=== PATIENT | female | born 2000 | race Caucasian/White ===

== ENCOUNTER 2024-11-30 16:04 | Observation (INO) | payer OTHER, SELFPAY ==
[2024-11-30 16:19] VITALS: BP 137/87; PULSE 88
[2024-11-30 16:29] LABS: Basophils Percent Auto 0.1 % (0.2-2.0); Eosinophils Absolute Auto 0.1 10^3/uL (0.0-0.7); Eosinophils Percent Auto 0.8 % (0.9-7.0); Hematocrit 38.7 % (36.0-48.0); Hemoglobin 13.3 g/dL (12.0-16.0); Immature Granulocytes Abs Auto 0.03 10^3/uL (0.00-0.03); Immature Granulocytes Pct Auto 0.3 % (0.0-0.5); Lymphocytes Absolute Auto 1.4 10^3/uL (1.2-3.8); Lymphocytes Percent Auto 15.1 % (20.5-60.0); Mean Corpuscular HGB Conc 34.4 g/dL (29.9-35.2); Mean Corpuscular Volume 90.2 fL (81.0-99.0); Mean Platelet Volume 9.3 fL (9.5-13.5); Monocytes Absolute Auto 0.8 10^3/uL (0.3-0.8); Monocytes Percent Auto 8.9 % (1.7-12.0); Neutrophils Percent Auto 74.8 % (43.0-75.0); Platelet Count 208 10^3/uL (150-450); Red Blood Count 4.29 10^6/uL (4.20-5.40); Red Cell Distribution Width 12.3 % (11.0-15.0); White Blood Count 9.3 10^3/uL (4.0-11.0)
[2024-11-30 16:36] LABS: Creatinine Urine Random 43.07 mg/dL (20.00-300.00); Protein Creatinine Ratio Urine 0.39; Total Protein Urine Random 16.8 mg/dL (<=11.9)
[2024-11-30 16:42] LABS: Alanine Aminotransferase 24 U/L (14-59); Albumin Globulin Ratio 0.8; Albumin Level 2.5 g/dL (3.4-5.0); Alkaline Phosphatase 132 U/L (46-116); Anion Gap 12.4; Aspartate Amino Transferase 22 U/L (15-37); BUN Creatinine Ratio 10.7; Bilirubin Total 0.2 mg/dL (0.2-1.0); Calcium 8.7 mg/dL (8.5-10.1); Carbon Dioxide 28.1 mmol/L (21.0-32.0); Chloride 106 mmol/L (98-107); Estimated GFR (African America >60 (>=60 mL/min/1.73m^2); Estimated GFR (Non-African Ame >60 (>=60 mL/min/1.73m^2); Globulin 3.3 g/dL; Glucose 92 mg/dL (74-106); Lactate Dehydrogenase 162 U/L (81-234); Potassium 3.5 mmol/L (3.5-5.1); Sodium 143 mmol/L (136-145); Total Protein 5.8 g/dL (6.4-8.2); Uric Acid 4.9 mg/dL (2.6-6.0)
[2024-11-30 16:57] VITALS: BP 123/73; PULSE 80
[2024-11-30 17:34] VITALS: BP 133/81; PULSE 98
[2024-11-30] MEDS: BUTALB/ACETAMINOPHEN/CAFFEINE 50-325-40MG TABLET 1 TAB PO (17:48)
--- NOTE | 2024-11-30 17:55 | US_ITS ---
[place] [address] Patient Name: BERNADETTE ASH MRN: [id number] date: 2000 Sex: F Assigned Patient Location: [facility] Current Patient Location: Accession/Order Number: [id number] Exam Date: 11/30/2024 19:18 Report Date: 11/30/2024 19:18 At the request of: SHERLY SOARES APRN, CNM Procedure: US OB BPP w non-stress Ultrasound biophysical profile HISTORY: High blood pressure Adequate breathing movement, gross body movement, tone and amniotic fluid volume for total score of 8 out of 8. The amniotic fluid index is 11.5cm within normal limits. The heart rate 157 bpm. US/US OB BPP w non-stress IMPRESSION: Adequate ultrasound biophysical profile Impression dictated by: Simba Arshad M.D. 11/30/2024 7:18 PM [facility] Electron[facility]ated by: [id number] Y Date: 11/30/2024 19:18
[2024-11-30 17:58] VITALS: BP 119/55; PULSE 82
[2024-11-30 18:27] VITALS: BP 127/74; PULSE 81
[2024-11-30 18:57] VITALS: BP 123/69; PULSE 73
== END 2024-11-30 19:15 | disposition home or self-care (01) ==
PROVIDERS: Admitting Provider Midwife; PCP Family Medicine; Visit Provider Midwife
DX: O26.893 Other specified pregnancy related conditions, third trimester (principal); R51.9 Headache, unspecified; R03.0 Elevated blood-pressure reading, without diagnosis of hypertension; Z3A.34 34 weeks gestation of pregnancy
CPT/HCPCS: 36415; 59025; 76818; 80053; 82570; 83615; 84156; 84550; 85025; G0378; G0379

== ENCOUNTER 2024-12-28 11:20 | Inpatient (IN) | payer OTHER, SELFPAY ==
--- OUTSIDE RECORDS SUMMARY | 2024-12-20 14:30 | XMS_ITS | Encounter Summary ---
Author Organization [facility] Address [address] [place] [address] Care Team Providers Care Ammonia Box Tender Name Role Phone Armin Richards MD Primary Care Provider Encounter Details Date Type Department Care Team (Latest Contact Info) Description 12/20/2024 2:30 PM EDT Routine [facility] [address] [place] [address] Estela Sanders, CNM [address] [place], [place] [phone] Encounter for care of first , third trimester ([facility]) (Primary Dx); screening for streptococcus B ([facility]) Social History Tobacco Use Types Packs/Day Years Used Date Smoking Tobacco: Never Smokeless Tobacco: Never Alcohol Use Standard Drinks/Week Comments Not Currently 1 (1 standard drink = 0.6 oz pur e alcohol) Social Connection and Isolat ion Panel [NHANES] Answer Date Recorded In a typical week, how many times do you talk on the phone with family, friends, or neighbors? More than three times a week 10/04/2023 How often do you get togethe r with friends or relatives? More than three times a week 10/04/2023 How often do you attend [facility] or pentecostalism services? Never 10/04/2023 Do you belong to any clubs o r organizations such as yazidi groups, unions, fraternal or athletic groups, or school groups? No 10/04/2023 How often do you attend meet ings of the clubs or organizations you belong to? Never 10/04/2023 Are you , , di vorced, , never , or living with a partner? Patient declined 10/04/2023 AUDIT-C Answer Date Recorded Q1: How often do you have a drink containing alc ohol? 2-4 times a month 10/04/2023 Q2: How many drinks containi ng alcohol do you have on a typical day when you are drinking? 1 or 2 10/04/2023 Q3: How often do you have si x or more drinks on one occasion? Less than monthly 10/04/2023 Overall Financial Resource Strain (CARDIA) Answe r Date Recorded How hard is it for you to pa y for the very basics like food, housing, medical care, and heating? Not hard at all 10/04/2023 [facility] of Occupat ional Health - Occupational Stress Questionnaire Answer Date Recorded Do you feel stress - tense, restless, nervous, or anxious, or unable to sleep at night because your mind is troubled all the time - these days? Rather much 10/04/2023 Exercise Vital Sign Answer Date Recorde d On average, how many days pe r week do you engage in moderate to strenuous exercise (like a brisk walk)? 5 days 10/04/2023 On average, how many minutes do you engage in exercise at this level? 60 min 10/04/2023 Hunger Vital Sign Answer Date Recorded Within the past 12 months, y ou worried that your food would run out before you got the money to buy more. Never true 10/04/19 24 Within the past 12 months, t he food you bought just didn't last and you didn't have money to get more. Never true 10/04/2023 PRAPARE - Transportation Answer Date Re corded In the past 12 months, has l ack of transportation kept you from medical appointments or from getting medications? No 11/2023 In the past 12 months, has l ack of transportation kept you from meetings, work, or from getting things needed for daily living? No 10/04/2023 Housing Stability Vital Sign Answer Evaristo e Recorded In the last 12 months, was t here a time when you were not able to pay the mortgage or rent on time? No 10/04/2023 In the last 12 months, how many places have you lived? 1 10/04/2023 In the last 12 months, was t here a time when you did not have a steady place to sleep or slept in a senior living (including now)? No 10/04/2023 Estimated Date of Delivery Comme nts Yes 01/09/2025 Based on last me nstrual period of 04/04/2024 (Exact Date) Sex and Gender Information Value Date Recorded Sex Assigned at Female 10/04/2023 8:44 PM EDT Legal Sex Female 7:10 PM EDT Gender Identity Female 09/11/2022 7:10 PM EDT Sexual Orientation Not on file documented as of this encounter Last Filed Vital Signs Vital Sign Reading Time Taken Comments Blood Pressure 118/80 12/20/2024 2:36 PM EDT Pulse - - Temperature - - Respiratory Rate - - Oxygen Saturation - - Inhaled Oxygen Concentration - - Weight 85.7 kg (189 lb) 12/20/2024 2:36 PM EDT Height - - Body Mass Index 29.6 01/19/2024 4:06 PM EDT documented in this encounter Progress Notes * Estela Sanders CNM - 12/20/2024 2:30 PM EDT Subjective No chief complaint on file. Martha Spring is a 24 y.o. at 37w1d with a working estimated date of delivery of 01/09/2025,by Last Menstrual Period who presents for a routine visit. She denies vaginal bleeding, leakage of fluid, decreased movements, or contractions. OB History Para Term AB Living 1 SAB IAB Ectopic Multiple Live Births # Outcome Date GA Lbr Geovanni/2nd Weight Sex Type Anes PTL Lv 1 Current Her is complicated by: an episode of high blood pressure this and sent to hospital for pre-e work up and all labs negative Hypertension Objective Physical Exam Weight: 189 lb Expected Total Weight Gain: 25 lb-35 lb Pregravid BMI: 23.80 BP: 118/80 Urine protein-negative Urine glucose-negative Assessment/Plan Diagnoses and all orders for this visit: Encounter for care of first , third trimester ([facility]) Continue vitamin. Labs reviewed. GBS taken today appt was rescheduled from last week due to provider deliveries Expected mode of delivery vaginal Follow up in 1 week for a routine visit. documented in this encounter Miscellaneous Notes * Addendum Note - Armin Lobo MA - 12/20/2024 2:30 PM EDTAddended by: ARMIN LOBO on: 12/21/2024 09:09 AM Modules accepted: Orders documented in this encounter Plan of Treatment Not on file documented as of this encounter Procedures Procedure Name Priority Date/Time Associated Diagnosis Comments STREPTOCCOUS, GROUP B CULTURE Routine 12/21/2024 9:18 AM EDT screening for streptococcus B ([facility]) documented in this encounter Results * (ABNORMAL) STREPTOCCOUS, GROUP B CULTURE (12/21/2024 9:18 AM EDT) MICRO NUMBER [id number] [facility] SPECIMEN QUALITY Adequate [facility] SOURCE VAGINAL/ANOR ECTAL [facility] STATUS FINAL [facility] ISOLATE 1 SEE NOTE(A) [facility] Comment: Group B Streptococcus isolated Beta-hemolytic streptococci are predictably susceptible to Penicillin and other beta-lactams. Susceptibility testing not routinely performed. Please contact the laboratory within 3 days if susceptibility testing is desired. COMMENT SEE NOTE [facility] Comment: Note per CDC guidelines optimal recovery is achieved by swabbing both the lower vagina and rectum (through the anal sphincter). 12/21/2024 9:18 AM EDT 12/21/2024 9:18 AM EDT Narrative Resulting Agency Comment Performing Organization Information Site ID: QPT Name: [facility] Address: [address] [place] [address], [address] [place] [phone] Director: Mark Rocha MD us Estela Sanders CNM LAB BODY FLUIDS AND STOOLS O RDERABLES Final Result [facility] documented in this encounter Visit Diagnoses Diagnosis Encounter for care of first , third trimester ([facility] Primary screening for streptococcus B ([facility]) screening for Streptococcus B documented in this encounter Care Teams Ammonia Box Tender Relationship Specialty Start Date End Date Armin Richards MD [address] [place] [address] PCP - General Family Medicine 11/05/22 documented as of this encounter
--- OUTSIDE RECORDS SUMMARY | 2024-12-20 14:30 | XMS_ITS | Encounter Summary ---
Author Organization [facility] Address [address] [place] [address] Care Team Providers Care Cardiopulmonary Technician And Eeg Tech Name Role Phone Armin Richards MD Primary Care Provider [phone] Encounter Details Date Type Department Care Team (Latest Contact Info) Description 12/20/2024 2:30 PM EDT Routine [facility] [address] [place] [address] Estela Sanders, CNM [address] [place], [place] [phone] Encounter for care of first , third trimester ([facility]) (Primary Dx); screening for streptococcus B ([facility]) Social History Tobacco Use Types Packs/Day Years [...] week 10/04/2023 How often do you attend [facility] or sabianism services? Never 10/04/2023 Do you belong to any clubs o r organizations such as voodoo groups, unions, fraternal or athletic groups, or [...] and heating? Not hard at all 10/04/2023 [facility] of Occupat ional Health - Occupational Stress [...] place to sleep or slept in a care home (including now)? No 10/04/2023 Estimated Date of [...] for care of first , third trimester ([facility]) Continue vitamin. Labs reviewed. GBS taken today [...] 9:18 AM EDT screening for streptococcus B ([facility]) documented in this encounter Results * (ABNORMAL) STREPTOCCOUS, GROUP B CULTURE (12/21/2024 9:18 AM EDT) MICRO NUMBER [id number] [facility] SPECIMEN QUALITY Adequate [facility] SOURCE VAGINAL/ANOR [...] Performing Organization Information Site ID: QPT Name: [facility] Address: [address] [place] [address], [address] [place] [phone] Director: Mark Rocha MD us Estela Sanders CNM LAB BODY FLUIDS AND STOOLS O RDERABLES Final Result [facility] documented in this encounter Visit Diagnoses Diagnosis Encounter for care of first , third trimester ([facility] Primary screening for streptococcus B ([facility]) screening for Streptococcus B documented in this encounter Care Teams Cardiopulmonary Technician And Eeg Tech Relationship Specialty Start Date End Date Armin Richards MD [address] [place] [address] PCP - General Family Medicine 11/05/22 documented as of this encounter
[2024-12-28] VITALS (14 sets, daily range): BP systolic 103–136; BP diastolic 59–84; PULSE 78–126
--- OUTSIDE RECORDS SUMMARY | 2024-12-28 10:15 | XMS_ITS | Encounter Summary ---
Author Organization [facility] Address [address] [place] [address] Care Team Providers Care Boat Hoist Operator Helper Name Role Phone Brooke Richards MD Primary Care Provider [phone] Encounter Details Date Type Department Care Team (Late st Contact Info) Description 12/28/2024 10:15 AM EDT Routine [facility] [address] [place] [address] Estela Sanders, CNM [address] [place], [place] [phone] Arrived Social History Tobacco Use Types Packs/Day Years [...] week 10/04/2023 How often do you attend chur ch or caodaism services? Never 10/04/2023 Do you belong to any clubs o r organizations such as yazidism groups, unions, fraternal or athletic groups, or [...] and heating? Not hard at all 10/04/2023 [facility] [place] of Occupat ional Health - Occupational Stress [...] place to sleep or slept in a half-way (including now)? No 10/04/2023 Estimated Date of [...] Sign Reading Time Taken Comments Blood Pressure 150/100 12/28/2024 10:13 AM EDT Pulse - - Temperature - - Respiratory Rate - - Oxygen Saturation - - Inhaled Oxygen Concentration - - Weight 85.3 kg (188 lb) 12/28/2024 10:13 AM EDT Height - - Body Mass Index 29.44 01/19/2024 4:06 PM EDT documented in this encounter Plan of Treatment Not on file documented as of this encounter Visit Diagnoses Not on filedocumented in this encounter Care Teams Boat Hoist Operator Helper Relationship Specialty Start Date End Date Brooke Richards MD [address] [place] [address] PCP - General Family Medicine 11/05/22 documented as of this encounter
--- OUTSIDE RECORDS SUMMARY | 2024-12-28 10:15 | XMS_ITS | Encounter Summary ---
Author Organization [facility] Address [address] [place] [address] Care Team Providers Care General I Farmworker Name Role Phone Brooke Richards MD Primary Care Provider [phone] Encounter Details Date Type Department Care Team (Late st Contact Info) Description 12/28/2024 10:15 AM EDT Routine [facility] [address] [place] [address] Estela Sanders, CNM [address] [place], [place] [phone] Arrived Social History Tobacco Use Types Packs/Day [...] any clubs o r organizations such as uatsdin groups, unions, fraternal or athletic groups, or [...] and heating? Not hard at all 10/04/2023 [facility] of Occupat ional Health - Occupational Stress [...] place to sleep or slept in a assisted (including now)? No 10/04/2023 Estimated Date of [...] on filedocumented in this encounter Care Teams General I Farmworker Relationship Specialty Start Date End Date Brooke Richards MD [address] [place] [address] PCP - General Family Medicine 11/05/22 documented as of this encounter
--- OUTSIDE RECORDS SUMMARY | 2024-12-28 11:03 | XMS_ITS | Encounter Summary ---
Author Organization [facility] Address [id number] [address] [place] [address] Care Team Providers Care Computer Engineering Technologist Name Role Phone Unavailable Primary Care Provider Unavailabl e Encounter Details Date Type Department Care Team (Late st Contact Info) Description 09/28/2024 Orders Only [facility] [address] [place] [address] Beverly Mena, RN Social History Tobacco Use Types Packs/Day Years Used Date Smoking Tobacco: Never Smokeless Tobacco: Never Alcohol Use Standard Drinks/Week Comments Not Currently 0 (1 standard drink = 0.6 oz pur e alcohol) Overall Financial Resource Strain (CARDIA) Answe r Date Recorded How hard is it for you to pa y for the very basics like food, housing, medical care, and heating? Not hard at all 09/27/2024 PRAPARE - Transportation Answer Date Re corded In the past 12 months, has l ack of transportation kept you from medical appointments or from getting medications? No 08/30 In the past 12 months, has l ack of transportation kept you from meetings, work, or from getting things needed for daily living? No 09/27/2024 Housing Instability Answer Date Recorde d Are you worried or concerned that in the next two months you may not have stable housing that you own, rent or stay in as a part of a household? No 09/27/2024 Childcare Answer Date Recorded Childcare Unknown 12/09/2018 Employment Answer Date Recorded Employment Unknown 12/09/2018 Hunger Screening Answer Date Recorded Within the past 12 months we worried whether our food would run out before we got money to buy more. Never True 09/27/2024 Within the past 12 months th e food we bought just didn't last and we didn't have money to get more. Never True 09/27/2024 Estimated Date of Delivery Comme nts Yes 01/09/2025 Based on Other B asis, Per pt states based on LMP and u/s around 8 weeks Sex and Gender Information Value Date Recorded Sex Assigned at Not on file Legal Sex Female 12:06 PM EDT Gender Identity Not on file Sexual Orientation Not on file documented as of this encounter Plan of Treatment Not on file documented as of this encounter Visit Diagnoses Not on filedocumented in this encounter
--- OUTSIDE RECORDS SUMMARY | 2024-12-28 11:03 | XMS_ITS | Encounter Summary ---
Author Organization [facility] Address [address] [place] [address] Care Team Providers Care Distribution Center Associate Name Role Phone Brooke Richards MD Primary Care Provider [phone] Encounter Details Date Type Department Care Team (Late st Contact Info) Description 11/10/2024 Results Follow-Up [facility] [address] [place] [address] Estela Sanders, CNM [address] [place], [place] [phone] Social History Tobacco Use Types Packs/Day Years [...] often do you attend chur ch or yarsanism services? Never 10/04/2023 Do you belong to any clubs o r organizations such as roman catholic groups, unions, fraternal or athletic groups, or [...] and heating? Not hard at all 10/04/2023 [facility] of Occupat ional Health - Occupational Stress [...] place to sleep or slept in a residential (including now)? No 10/04/2023 Estimated Date of [...] on filedocumented in this encounter Care Teams Distribution Center Associate Relationship Specialty Start Date End Date Brooke Richards MD [address] [place] [address] PCP - General Family Medicine 11/05/22 documented as of this encounter
--- OUTSIDE RECORDS SUMMARY | 2024-12-28 11:03 | XMS_ITS | Encounter Summary ---
Author Organization [facility] Address [address] [place] [address] Care Team Providers Care Track Layer Head Name Role Phone Brooke Richards MD Primary Care Provider [phone] Encounter Details Date Type Department Care Team (Late st Contact Info) Description 12/20/2024 Bamboo flowsheet [facility] [address] [place] [address] Estela Sanders, CNM [address] [place], [place] [phone] Social History Tobacco Use Types Packs/Day Years [...] often do you attend chur ch or religion services? Never 10/04/2023 Do you belong to any clubs o r organizations such as adventism groups, unions, fraternal or athletic groups, or [...] and heating? Not hard at all 10/04/2023 [facility] [place] of Occupat ional Health - Occupational Stress [...] on filedocumented in this encounter Care Teams Track Layer Head Relationship Specialty Start Date End Date Brooke Richards MD [address] [place] [address] PCP - General Family Medicine 11/05/22 documented as of this encounter
--- OUTSIDE RECORDS SUMMARY | 2024-12-28 11:03 | XMS_ITS | Clinical Summary ---
Author Organization [facility] [email or web address] [facility] Address [id number] [address] [place] [address] Care Team Providers Care Cadd Instructor Name Role Phone Unavailable Primary Care Provider Unavailabl e Allergies No known active allergies Medications no115/iron/folic acid ( 19 ORAL) Take 1 tablet by mouth in the morning. Active Encounters Date Type Department Care Team Description 09/28/2024 Orders Only [facility] [address] [place] [address] Beverly Mena RN 09/27/2024 8:30 PM EDT - 09/28/2024 12:42 AM EDT Hospital Encounter [facility] [address] [place] [address] Giovanna Steve, WATER CONSERVATIONIST-CNM Discharge Disposition: Home from Last 3 Months Social History Tobacco Use Types Packs/Day Years Used Date Smoking Tobacco: Never Smokeless Tobacco: Never Tobacco Cessation:Counseling Given: Not Answered Alcohol Use Standard Drinks/Week Comments Not Currently [...] on file Sexual Orientation Not on file Last Filed Vital Signs Vital Sign Reading Time Taken Comments Blood Pressure 108/65 09/28/2024 12:00 AM EDT Pulse 80 09/28/2024 12:00 AM EDT Temperature 37.4 C (99.4 F) 09/27/2024 8:47 PM EDT Respiratory Rate 16 09/28/2024 12:00 AM EDT Oxygen Saturation 100% 09/27/2024 8:47 PM EDT Inhaled Oxygen Concentration - - Weight 72.6 kg (160 lb) 09/27/2024 8:59 PM EDT Height 170.2 cm (5' 7 ) 09/27/2024 8:59 PM EDT Body Mass Index 25.06 09/27/2024 8:59 PM EDT Plan of Treatment Not on file Medical Devices Not on file Insurance [employer] Advance Directives * Full Code (Latest Code Status on File) Date Activated Date Inactivated Comments 09/28/2024 12:38 AM 09/28/2024 2:49 AM
--- OUTSIDE RECORDS SUMMARY | 2024-12-28 11:03 | XMS_ITS | Encounter Summary ---
Author Organization [facility] Address [address] [place] [address] Care Team Providers Care Dispatcher Service Or Work Name Role Phone Brooke Richards MD Primary Care Provider [phone] Encounter Details Date Type Department Care Team (Latest Contact Info) Description 12/15/2024 Travel Social History Tobacco Use Types Packs/Day Years [...] often do you attend chur ch or orthodox services? Never 10/04/2023 Do you belong to any clubs o r organizations such as holiness groups, unions, fraternal or athletic groups, or [...] and heating? Not hard at all 10/04/2023 [facility] of Occupat ional Health - Occupational [...] on filedocumented in this encounter Care Teams Dispatcher Service Or Work Relationship Specialty Start Date End Date Brooke Richards MD [address] [place] [address] PCP - General Family Medicine 11/05/22 documented as of this encounter
--- OUTSIDE RECORDS SUMMARY | 2024-12-28 11:03 | XMS_ITS | Encounter Summary ---
Author Organization [facility] Address [address] [place] [address] Care Team Providers Care Product Director Name Role Phone Brooke Richards MD Primary Care Provider [phone] Encounter Details Date Type Department Care Team (Late st Contact Info) Description 12/01/2024 Results Follow-Up [facility] [address] [place] [address] Estela Sanders, CNM [address] [place], [place] [phone] Social History Tobacco Use Types Packs/Day Years [...] often do you attend chur ch or holiness services? Never 10/04/2023 Do you belong to any clubs o r organizations such as rastafarian groups, unions, fraternal or athletic groups, or [...] and heating? Not hard at all 10/04/2023 [facility] of Occupat ional Health - Occupational Stress [...] place to sleep or slept in a long term (including now)? No 10/04/2023 Estimated Date of [...] on filedocumented in this encounter Care Teams Product Director Relationship Specialty Start Date End Date Brooke Richards MD [address] [place] [address] PCP - General Family Medicine 11/05/22 documented as of this encounter
--- OUTSIDE RECORDS SUMMARY | 2024-12-28 11:03 | XMS_ITS | Encounter Summary ---
Author Organization [facility] Address [address] [place] [address] Care Team Providers Care Television Agent Name Role Phone Brooke Richards MD Primary Care Provider [phone] Encounter Details Date Type Department Care Team (Late st Contact Info) Description 11/10/2024 Results Follow-Up [facility] [address] [place] [address] Estela Sanders, CNM [address] [place], [place] [phone] Social History Tobacco Use Types Packs/Day Years [...] often do you attend chur ch or methodist services? Never 10/04/2023 Do you belong to any clubs o r organizations such as evangelical groups, unions, fraternal or athletic groups, or [...] and heating? Not hard at all 10/04/2023 [facility] [place] of Occupat ional Health - Occupational Stress [...] place to sleep or slept in a retirement (including now)? No 10/04/2023 Estimated Date of [...] on filedocumented in this encounter Care Teams Television Agent Relationship Specialty Start Date End Date Brooke Richards MD [address] [place] [address] PCP - General Family Medicine 11/05/22 documented as of this encounter
--- OUTSIDE RECORDS SUMMARY | 2024-12-28 11:03 | XMS_ITS | Encounter Summary ---
Author Organization [facility] Address [address] [place] [address] Care Team Providers Care Sand Mixer Operator Name Role Phone Brooke Richards MD Primary Care Provider [phone] Encounter Details Date Type Department Care Team (Latest Contact Info) Description 12/14/2024 Travel Social History Tobacco Use Types Packs/Day [...] often do you attend chur ch or voodoo services? Never 10/04/2023 Do you belong to [...] and heating? Not hard at all 10/04/2023 [facility] of Occupat ional Health - [...] place to sleep or slept in a fpc (including now)? No 10/04/2023 Estimated Date of [...] on filedocumented in this encounter Care Teams Sand Mixer Operator Relationship Specialty Start Date End Date Brooke Richards MD [address] [place] [address] PCP - General Family Medicine 11/05/22 documented as of this encounter
--- OUTSIDE RECORDS SUMMARY | 2024-12-28 11:03 | XMS_ITS | Encounter Summary ---
Author Organization [facility] Address [address] [place] [address] Care Team Providers Care Fight Manager Name Role Phone Brooke Richards MD Primary Care Provider [phone] Encounter Details Date Type Department Care Team (Late st Contact Info) Description 11/03/2024 Results Follow-Up [facility] [address] [place] [address] Estela Sanders, CNM [address] [place], [place] [id number] Social History Tobacco Use Types Packs/Day Years [...] and heating? Not hard at all 10/04/2023 [facility] [place] of Occupat ional Health - Occupational Stress [...] place to sleep or slept in a usp (including now)? No 10/04/2023 Estimated Date of [...] on filedocumented in this encounter Care Teams Fight Manager Relationship Specialty Start Date End Date Brooke Richards MD [address] [place] [address] PCP - General Family Medicine 11/05/22 documented as of this encounter
--- OUTSIDE RECORDS SUMMARY | 2024-12-28 11:04 | XMS_ITS | Encounter Summary ---
Author Organization [facility] Address [address] [place] [address] Care Team Providers Care Rn Military Name Role Phone Brooke Richards MD Primary Care Provider [phone] Encounter Details Date Type Department Care Team (Latest Contact Info) Description 12/21/2024 Travel Social History Tobacco Use Types Packs/Day [...] often do you attend chur ch or uatsdin services? Never 10/04/2023 Do you belong to [...] and heating? Not hard at all 10/04/2023 [facility]at ional [facility] - [...] place to sleep or slept in a snf (including now)? No 10/04/2023 Estimated Date of [...] on filedocumented in this encounter Care Teams Rn Military Relationship Specialty Start Date End Date Brooke Richards MD [address] [place] [address] PCP - General Family Medicine 11/05/22 documented as of this encounter
--- OUTSIDE RECORDS SUMMARY | 2024-12-28 11:04 | XMS_ITS | Encounter Summary ---
Author Organization [facility] Address [address] [place] [address] Care Team Providers Care Juvenile Corrections Officer Name Role Phone Brooke Richards MD Primary Care Provider [phone] Encounter Details Date Type Department Care Team (Late st Contact Info) Description 12/28/2024 Bamboo flowsheet [facility] [address] [place] [address] Estela Sanders, CNM [address] [place], [place] [id number] Social History Tobacco Use Types Packs/Day Years [...] any clubs o r organizations such as hoahaoism groups, unions, fraternal or athletic groups, or [...] heating? Not hard at all 10/04/2023 [facility] [place] of Occupat ional Health - Occupational Stress [...] place to sleep or slept in a intermediate (including now)? No 10/04/2023 Estimated Date of [...] on filedocumented in this encounter Care Teams Juvenile Corrections Officer Relationship Specialty Start Date End Date Brooke Richards MD [address] [place] [address] PCP - General Family Medicine 11/05/22 documented as of this encounter
--- OUTSIDE RECORDS SUMMARY | 2024-12-28 11:04 | XMS_ITS | Clinical Summary ---
Author Organization [facility] Address [address] [place] [address] Care Team Providers Care Mandrel Maker Name Role Phone Brooke Quigley MD Primary Care Provider [phone] Allergies No known active allergies Medications Psmxgffu-Sky-Ik -FA ( 1 + IRON PO) Take by mouth Activ e Blood Pressure Monitoring (Blood Pressure Cuff) miscIndications :Elevated blood pressure affecting in third trimester, antepartum ([facility]) 1 Units in the morning and 1 Units in the evening and 1 Units before bedtime. Please fill whatever insurance will cover. Check BP 3x a day. 1 each Active Active Problems Problem Noted Date Diagnosed Date Iron deficiency anemia secon farheen to inadequate dietary iron intake 10/09/2023 Estimated Date of Delivery Comme nts Yes 01/09/2025 Based on last me nstrual period of 04/04/2024 (Exact Date) Encounters Date Type Department Care Team Description 12/28/2024 10:15 AM EDT Routine [facility] [address] [place] [address] Sherly Sanders CNM Arrived 12/28/2024 Bamboo flowsheet [facility] [address] [place] [address] Sherly Sanders CNM 12/21/2024 Travel 12/20/2024 2:30 PM EDT Routine [facility] [address] [place] [phone] Sherly Sanders, ADRIANA Encounter for care of first , third trimester ([facility]) (Primary Dx); screening for streptococcus B ([facility]) 12/20/2024 Bamboo flowsheet [facility] [place] [address] Sherly Sanders, ADRIANA 12/15/2024 Travel 12/14/2024 Travel 12/08/2024 11:00 AM EDT Routine [facility] [address] [place] [phone] Sherly Sanders, ADRIANA Encounter for care of first , third trimester ([facility]) (Primary Dx) 12/08/2024 Bamboo flowsheet [facility] [address] [place] [address] Sherly Sanders, ADRIANA 12/02/2024 3:45 PM EDT Routine [facility] [address] [place] [phone] Sherly Sanders, ADRIANA Encounter for care of first , third trimester ([facility]) (Primary Dx); Elevated blood pressure affecting in third trimester, antepartum ([facility]) 12/02/2024 Bamboo flowsheet [facility] [address] [place] [address] Sherly Sanders, ADRIANA 12/01/2024 Travel 12/01/2024 Orders Only [facility] [place] [phone] Sherly Sanders, CNM Elevated blood pressure affecting in third trimester, antepartum ([facility]) 12/01/2024 Results Follow-Up [facility] [address] [place] [phone] Sherly Sanders, CNM 11/30/2024 1:45 PM EDT Routine [facility] [address] [place] [address] Sherly Sanders, ADRIANA Encounter for care of first , third trimester ([facility]) (Primary Dx); Elevated blood pressure affecting in third trimester, antepartum ([facility]) 11/30/2024 Clinisync Result Encounter [facility] External Department Unsolicited Sherly Sanders, CNM 11/30/2024 Clinisync Result Encounter [facility]OMS External Department Unsolicited Sherly Sanders, CNM 11/30/2024 Bamboo flowsheet [facility] [address] [place] [address] Sherly Sanders, CNM 11/30/2024 Travel 11/28/2024 Travel 11/18/2024 4:00 PM EDT Routine [facility] [address] [place] [address] Sherly Sanders, ADRIANA Encounter for care of first , third trimester ([facility]) (Primary Dx) 11/18/2024 Bamboo flowsheet [facility] [address] [place] [address] Sherly Sanders, CNM 11/13/2024 Travel 11/10/2024 Results Follow-Up [facility] [address] [place] [address] Sherly Sanders, CNM 11/10/2024 Results Follow-Up [facility] [address] [place] [address] Sherly Sanders, CNM 11/03/2024 4:00 PM EDT Ancillary Procedure [facility] ULTRASOUND [address] [place] [address] related condition in third trimester ([facility]) 11/03/2024 Results Follow-Up [facility] [address] [place] [address] Sherly Sanders CNM 11/03/2024 Travel 11/02/2024 Travel 10/20/2024 8:30 AM EDT Routine [facility] [address] [place] [address] Sherly Sanders CNM Screening for diabetes mellitus (DM); Screening for iron deficiency anemia; related condition in third trimester ([facility]) 10/20/2024 Bamboo flowsheet [facility] [address] [place] [address] Sherly Sanders CNM 10/15/2024 Travel 09/28/2024 10:30 AM EDT Ancillary Procedure [facility] ULTRASOUND [address] [address] related condition in second trimester ([facility]) 09/28/2024 Travel 09/28/2024 Orders Only [facility] [address] [place] [address] Sherly Sanders CNM related condition in second trimester ([facility]) from Last 3 Months Family History Relation Name Status Comments Father Alive Mother Alive Social History Tobacco Use Types Packs/Day Years [...] often do you attend chur ch or faith services? Never 10/04/2023 Do you belong to any clubs o r organizations such as pentecostalism groups, unions, fraternal or athletic groups, or [...] and heating? Not hard at all 10/04/2023 [facility] [place] of Occupat ional Health - Occupational Stress [...] place to sleep or slept in a correction (including now)? No 10/04/2023 Estimated Date of Delivery Comme nts Yes 01/09/2025 Based on last me nstrual period of 04/04/2024 (Exact Date) Sex and Gender Information Value Date Recorded Sex Assigned at Female 10/04/2023 8:44 PM EDT Legal Sex Female 7:10 PM EDT Gender Identity Female 09/11/2022 7:10 PM EDT Sexual Orientation Not on file Last Filed Vital Signs Vital Sign Reading Time Taken Comments Blood Pressure 150/100 12/28/2024 10:13 AM EDT Pulse 72 01/19/2024 4:06 PM EDT Temperature 36.4 C (97.6 F) 01/12/2024 5:04 PM EDT Respiratory Rate 18 01/19/2024 4:06 PM EDT Oxygen Saturation 99% 01/19/2024 4:06 PM EDT Inhaled Oxygen Concentration - - Weight 85.3 kg (188 lb) 12/28/2024 10:13 AM EDT Height 170.2 cm (5' 7 ) 01/19/2024 4:06 PM EDT Body Mass Index 29.44 01/19/2024 4:06 PM EDT Plan of Treatment Health Maintenance Due Date Last Done Comments Influenza Vaccine (#1) 2025 Procedures Procedure Name Priority Date/Time Associated Diagnosis Comments STREPTOCCOUS, GROUP B CULTURE Routine 12/21/2024 9:18 AM EDT screening for streptococcus B ([facility]) US OB BPP W NON-STRESS 11/30/2024 7:18 PM EDT ALL LDH Routine 11/30/2024 4:22 PM EDT ALL URIC ACID Routine 11/30/2024 4:22 PM EDT [facility] CMP (CMP) (FOR REMOTE [facility] USE) Routine 11/30/2024 4:22 PM EDT ALL CBC WITH AUTO DIFF Routine 4:22 PM EDT [facility] URINE T PROTEIN CREAT RATIO Routine 11/30/2024 4:05 PM EDT US OB FOLLOW UP TRANSABDOMINAL APPROACH Routine 11/03/2024 4:34 PM EDT related condition in third trimester ([facility]) CBC Routine 10/20/2024 9:03 AM EDT Screening for iron deficiency anemia GLUCOSE, GESTATIONAL SCREEN (50G)-135 CUTOFF Routine 10/20/2024 9:03 AM EDT Screening for diabetes mellitus (DM) US OB LIMITED 1+ FETUSES Routine 09/28/2024 10:53 AM EDT related condition in second trimester ([facility]) from Last 3 Months Results * (ABNORMAL) STREPTOCCOUS, GROUP B CULTURE (12/21/2024 9:18 AM EDT) MICRO NUMBER [id number] [facility] SPECIMEN QUALITY Adequate [facility] SOURCE VAGINAL/ANOR [...] Performing Organization Information Site ID: QPT Name: [employer] [facility] Address: [address] [place] [address], [address] [place] [phone] Director: Mark Rocha MD us Sherly Sanders CNM LAB BODY FLUIDS AND STOOLS O RDERABLES Final Result [facility] * US OB BPP W NON-STRESS (11/30/2024 7:18 PM EDT) Anatomical Region Laterality Modality Other 11/30/2024 7:18 PM EDT Narrative 11/30/2024 7:21 [place] [address] Ultrasound Report Signed Patient: BERNADETTE ASH MR#: [id number] : 2000 Acct:[id number] Age/Sex: 24 / F ADM Date: Loc: [facility] 252-[address]: SHERLY SANDERS APRN, CNM Ordering Physician: SHERLY SANDERS APRN, CNM Date of Service: 11/30/24 Procedure(s): US OB BPP w non-stress Accession Number(s): [id number] cc: SHERLY SANDERS APRN, CNM; BROOKE QUIGLEY [place] [address] Patient Name: BERNADETTE ASH MRN: [id number] date: 2000 Sex: F Assigned Patient Location: [facility] Current Patient Location: Accession/Order Number: [id number] Exam Date: 11/30/2024 19:18 Report Date: 11/30/2024 19:18 At the request of: SHERLY SANDERS APRN, CNM Procedure: US OB BPP w non-stress Ultrasound biophysical profile HISTORY: High blood pressure Adequate breathing movement, gross body movement, tone and amniotic fluid volume for total score of 8 out of 8. The amniotic fluid index is 11.5cm within normal limits. The heart rate 157 bpm. US/US OB BPP w non-stress IMPRESSION: Adequate ultrasound biophysical profile Impression dictated by: Simba Arshad M.D. 11/30/2024 7:18 PM Dictation Location: [place] [address] Electronically authenticated by: [id number] Y Date: 11/30/2024 19:18 Dictated By: Simba Arshad D.O. Signed By: 11/30/241920 DD/ 17 TD/TT: Nurse Unit Manager: Procedure Note Radiology, Radiologist, MD - 11/30/2024 [place] [address] Ultrasound Report Signed Patient: BERNADETTE ASH JMR#: [id number] : 2000Acct:[id number] Age/Sex: 24 / FADM Date: Loc: [address]: SHERLY SANDERS APRN, CNM Ordering Physician: SHERLY SANDERS APRN, CNM Date of Service: 11/30/24 Procedure(s): US OB BPP w non-stress Accession Number(s): [id number] cc: SHERLY SANDERS APRN, CNM; BROOKE QUIGLEY [place] [id number] Patient Name: BERNADETTE ASH MRN: [facility]:[id number] date: 2000 Sex: F Assigned Patient Location: [facility] Current Patient Location: Accession/Order Number: [id number] Exam Date: 11/30/2024 19:18 Report Date: 11/30/2024 19:18 At the request of: SHERLY SANDERS APRN, CNM Procedure: US OB BPP w non-stress Ultrasound biophysical profile HISTORY: High blood pressure Adequate breathing movement, gross body movement, tone and amniotic fluid volume for total score of 8 out of 8. The amniotic fluidindex is 11.5cm within normal limits. The heart rate 157 bpm. US/US OB BPP w non-stress IMPRESSION: Adequate ultrasound biophysical profile Impression dictated by: Simba Arshad M.D. 11/30/2024 7:18 PM Dictation Location: [place] [address] Electronically authenticated by: [id number] Y Date: 9:18 Dictated By: Simba Arshad D.O. Signed By:11/30/241920 DD/ 17 TD/TT: Nurse Unit Manager: us Sherly Sanders CNM [facility] IMAGING Final Resu lt * (ABNORMAL) [facility] CMP (CMP) (FOR REMOTE [facility] USE) (11/30/2024 4:22 PM EDT) SODIUM 143 136 - 145 mmol/L [facility] POTASSIUM 3.5 3.5 - 5.1 mmol/L [facility] CHLORIDE 106 98 - 107 mmol/L [facility]H CARBON DIOXIDE 28.1 21.0 - 32.0 mmol/L TBH ANION GAP 12.4 TBH GLUCOSE 92 74 - 106 mg/dL TBH BLOOD UREA NITROGEN 6.0(L) 7.0 - 18.0 mg/dL [facility] CREATININE 0.56 0.55 - 1.02 mg/dL TBH TBH EGFR-AF MAURITANIAN >60 >=60 mL/min/1. 73m 2 TBH TBH EGFR-NON AF MAURITANIAN >60 >=60 mL/min/1. 73m 2 TBH BUN CREATININE RATIO 10.7 TBH CALCIUM 8.7 8.5 - 10.1 mg/dL [facility] BILIRUBIN TOTAL 0.2 0.2 - 1.0 mg/dL [facility] ASPARTATE AMINO TRANSFERASE 22 15 - 37 U/L TBH ALANINE AMINOTRANSFERASE 24 14 - 59 U/L TBH ALKALINE PHOSPHATASE 132(H) 46 - 116 U/L TBH TOTAL PROTEIN 5.8(L) 6.4 - 8.2 g/dL [facility] ALBUMIN LEVEL 2.5(L) 3.4 - 5.0 g/dL [facility] GLOBULIN 3.3 g/dL [facility]H ALBUMIN GLOBULIN RATIO 0.8 TBH 11/30/2024 4:22 PM EDT 11/30/2024 4:26 PM EDT Narrative CLINISYNC - 11/30/2024 4:43 PM EDT us Sherly Sanders CNM [facility] Final Result [facility] * ALL URIC ACID (11/30/2024 4:22 PM EDT) URIC ACID 4.9 2.6 - 6.0 mg/dL [facility]H 11/30/2024 4:22 PM EDT 11/30/2024 4:26 PM EDT Narrative CLINISYNC - 11/30/2024 4:43 PM EDT Sherly L Alexsandrao CN [facility] Final Result [facility] * ALL LDH (11/30/2024 4:22 PM EDT) Pathologist [facility] LACTATE DEHYDROGENASE 162 81 - 234 U/L TB 11/30/2024 4:22 PM EDT 11/30/2024 4:26 PM EDT Narrative CLINISYNC - 11/30/2024 4:43 PM EDT Sherly Lily Uptono CN CLIN[facility] Final Result Performing Organization Address [facility] Co de Phone Number CLIN[facility]NC [facility] * (ABNORMAL) ALL CBC WITH AUTO DIFF (11/30/2024 4:22 PM EDT) Pathologist [facility] TB WBC 9.3 4.0 - 11.0 10 3/uL TBH TB RBC 4.29 4.20 - 5.40 10 6/uL TBH TB HGB 13.3 12.0 - 16.0 g/dL TB TB HCT 38.7 36.0 - 48.0 % TB TB MCV 90.2 81.0 - 99.0 fL TB TB MCH 31.0 26.7 - 34.0 pg TBH TB MCHC 34.4 29.9 - 35.2 g/dL TB TB RDW 12.3 11.0 - 15.0 % TB TB PLT 208 150 - 450 10 3/uL TBH TBH MPV 9.3(L) 9.5 - 13.5 fL TBH NEUTROPHILS PERCENT AUTO 74.8 43.0 - 75.0 % TBH LYMPHOCYTES PERCENT AUTO 15.1(L) 20.5 - 60.0 % TBH MONOCYTES PERCENT AUTO 8.9 1.7 - 12.0 % TBH TBH EO % 0.8(L) 0.9 - 7.0 % TBH BASOPHILS PERCENT AUTO 0.1(L) 0.2 - 2.0 % TBH IMMATURE GRANULOCYTES PCT AUTO 0.3 0.0 - 0.5 % TBH NEUTROPHILS ABSOLUTE AUTO 7.0(H) 1.4 - 6.5 10 3/uL TBH LYMPHOCYTES ABSOLUTE AUTO 1.4 1.2 - 3.8 10 3/uL TBH MONOCYTES ABSOLUTE AUTO 0.8 0.3 - 0.8 10 3/uL TBH TBH EO # 0.1 0.0 - 0.7 10 3/uL TBH BASOPHILS ABSOLUTE AUTO 0.0 0.0 - 0.1 10 3/uL TBH IMMATURE GRANULOCYTES ABS AUTO 0.03 0.00 - 0.03 10 3/uL TBH 11/30/2024 4:22 PM EDT 11/30/2024 4:26 PM EDT Narrative CLINISYNC - 11/30/2024 4:30 PM EDT us Sherly Lily Uptono CN CLINIS[facility]NC Final Result Performing Organization Address [facility] Co de Phone Number JULIA [facility] * (ABNORMAL) TBH URINE T PROTEIN CREAT RATIO (11/30/2024 4:05 PM EDT) TOTAL PROTEIN URINE RANDOM 16.8(H) <=11.9 mg/dL TBH CREATININE URINE RANDOM 43.07 20.00 - 300.00 mg/dL TBH PROTEIN CREATININE RATIO URINE 0.39 TBH 11/30/2024 4:05 PM EDT 11/30/2024 4:26 PM EDT Narrative CLINISYNC - 11/30/2024 4:39 PM EDT us Sherly Lily Uptono LOR[facility]ZA [facility]IN[facility] Final Result [facility] * US OB follow up transabdominal approach (11/03/2024 4:34 PM EDT) Anatomical Region Laterality Modality Body Ultrasound 11/04/2024 12:3 8 PM EDT Narrative 11/04/2024 12:38 PM EDT EXAM: OB Ultrasound: REASON FOR EXAM: Growth. COMPARISON: 09/28/2024, 08/25/2024, 06/03/2024. TECHNIQUE: Grayscale and M-mode Doppler imaging is performed. FINDINGS: heart rate: 136 bpm SARA: 14.5 cm (8.9 - 23.6) BPD: 7.6 cm HC: 27.6 cm AC: 26.2 cm FL: 5.8 cm GA for sonogram: 29.9 weeks (28.1 - 31.7) ELMA: 01/09/2025 Cervix length: 3.5 cm Weight Estimate: Weight: 1553 gm/3 lbs, 6 oz (1326 - 1780 gm) Hadlock Normal: 1674 gm (1389 - 1959 gm) Hadlock Wt%: 29% for 30.6 wks LMP: Age by LMP: 30 w 3 d Age Prior US: 20 w 0 d Age US Today: 30 w 2 d ELMA by LMP: 01/09/2025 ELMA Prior US: 01/12/2025 ELMA US Today: 01/10/2025 Gestation: Single Position: Cephalic Placental Location: Anterior Placental Grade: 2 Somatic Movement: Yes Heart Rate: 136 bpm IMPRESSION: Single live intrauterine gestation in cephalic position estimated at 30 weeks 3 days. This is concordant with the provided clinical dates and prior ultrasound. *This report is generated using voice recognition reporting (BIO-NEMS). On occasion [employer] Sharing[employer] erroneously drops words from the report or replaces the spoken word with similar sounding words. Please call with any questions/concerns regarding this report.* Dictated and transcribed 11/04/2024/[email or web address] This report has been electronically signed and approved by the interpreting radiologist. Procedure Note Mark Sorensen MD - 11/04/2024 EXAM: OB Ultrasound: REASON FOR EXAM: Growth. COMPARISON: 09/28/2024, 08/25/2024, 06/03/2024. TECHNIQUE: Grayscale and M-mode Doppler imaging is performed. FINDINGS: heart rate: 136 bpm SARA: 14.5 cm (8.9 - 23.6) BPD: 7.6 cm HC: 27.6 cm AC: 26.2 cm FL: 5.8 cm GA for sonogram: 29.9 weeks (28.1 - 31.7) ELMA: 01/09/2025 Cervix length: 3.5 cm Weight Estimate: Weight: 1553 gm/3 lbs, 6 oz (1326 - 1780 gm) Hadlock Normal: 1674 gm (1389 - 1959 gm) Hadlock Wt%: 29% for 30.6 wks LMP: Age by LMP: 30 w 3 d Age Prior US: 20 w 0 d Age US Today:30 w 2 d ELMA by LMP: 01/09/2025 ELMA Prior US: 01/12/2025 ELMA US Today:01/10/2025 Gestation: Single Position: Cephalic Placental Location: Anterior Placental Grade: 2 Somatic Movement: Yes Heart Rate: 136 bpm IMPRESSION: Single live intrauterine gestation in cephalic position estimated at 30weeks 3 days. This is concordant with the provided clinical dates andprior ultrasound. *This report is generated using voice recognition reporting (BIO-NEMS).On occasion [employer] erroneously drops words from the report orreplaces the spoken word with similar sounding words. Please call with anyquestions/concerns regarding this report.* Dictated and transcribed 11/04/2024/[email or web address] This report has been electronically signed and approved by theinterpreting radiologist. us Sherly Sanders CNM IMG OB US PROCEDURES Final R esult * GLUCOSE, GESTATIONAL SCREEN (50G)-135 CUTOFF (10/20/2024 9:03 AM EDT) GLUCOSE, GESTATIONAL SCREEN (50G)-135 CUTOFF 114 <135 mg/dL [facility] 10/20/2024 9:03 AM EDT 10/20/2024 2:46 PM EDT Narrative Resulting Agency Comment Performing Organization Information Site ID: QTW Name: [facility] Address: [address] [place] [phone] Director: Angela Murphy us Sherly Sanders CNM LAB BLOOD ORDERABLES Final R esult [facility] * CBC (10/20/2024 9:03 AM EDT) WHITE BLOOD CELL COUNT 8.2 3.8 - 10.8 Thousand/u L [facility] RED BLOOD CELL COUNT 4.42 3.80 - 5.10 Million/uL [facility] HEMOGLOBIN 13.3 11.7 - 15.5 g/dL [facility] HEMATOCRIT 40.5 35.0 - 45.0 % [facility] MCV 91.6 80.0 - 100.0 fL [facility] MCH 30.1 27.0 - 33.0 pg [facility] MCHC 32.8 32.0 - 36.0 g/dL [facility] Comment: For adults, a slight decrease in the calculated MCHC value (in the range of 30 to 32 g/dL) is most likely not clinically significant; however, it should be interpreted with caution in correlation with other red cell parameters and the patient's clinical condition. RDW 12.6 11.0 - 15.0 % [facility] PLATELET COUNT 225 140 - 400 Thousand/u L [facility] MPV 9.5 7.5 - 12.5 fL [facility] Blood Venous blood specimen / Unknown 10/20/2024 9:03 AM EDT 10/20/2024 2:46 PM EDT Narrative Resulting Agency Comment Performing Organization Information Site ID: QTW Name: [facility] Address: [address] [place] [phone] Director: Angela Murphy Sherly Sanders [facility] BLOOD ORDERABLES Final R esult [facility] * US OB limited 1+ fetuses (09/28/2024 10:53 AM EDT) Anatomical Region Laterality Modality Body Ultrasound 09/28/2024 11:1 4 PM EDT Narrative 09/28/2024 11:14 PM EDT EXAM: US OB LIMITED 1+ FETUSES HISTORY: Fall. COMPARISON: OB ultrasound 08/05/2024. TECHNIQUE: Two-dimensional transabdominal grayscale ultrasound imaging of the pelvis was performed. FINDINGS: Gestation: Single Presentation: Breech Cardiac Activity: 134 beats per minute Placental Location: Anterior with a small placental richardson Cervical Length: 3.6 cm Amniotic Fluid Index: 14.9 cm IMPRESSION: 1. Single, live intrauterine gestation 25 weeks, 2 days by LMP. ELMA is 04/04/2024. 2. Small placental richardson visualized. Electronically Signed:Electronically signed by REID MCKEON II, MD, PHD at 28-Sep-2024 11:12:33 PM [facility] Procedure Note Reid Mckeon MD - 09/28/2024 EXAM: US OB LIMITED 1+ FETUSES HISTORY: Fall. COMPARISON: OB ultrasound 08/05/2024. TECHNIQUE: Two-dimensional transabdominal grayscale ultrasound imaging ofthe pelvis was performed. FINDINGS: Gestation: Single Presentation: Breech Cardiac Activity: 134 beats per minute Placental Location: Anterior with a small placental richardson Cervical Length: 3.6 cm Amniotic Fluid Index: 14.9 cm IMPRESSION: 1. Single, live intrauterine gestation 25 weeks, 2 days by LMP. ELMA is04/04/2024. 2. Small placental richardson visualized. Electronically Signed:Electronically signed by REID MCKEON II, MD, PHDat 28-Sep-2024 11:12:33 PM [facility] us Sherly Sanders CNM IMG OB US PROCEDURES Final R esult from Last 3 Months Insurance [employer] Care Teams Mandrel Maker Relationship Specialty Start Date End Date Brooke Quigley MD [address] [place] [address] PCP - General Family Medicine 11/05/22
--- OUTSIDE RECORDS SUMMARY | 2024-12-28 11:27 | XMS_ITS | Encounter Summary ---
Author Organization [facility] Address [address] [place] [address] Care Team Providers Care Administration Dean Name Role Phone Brooke Richards MD Primary Care Provider [phone] Encounter Details Date Type Department Care Team (Late st Contact Info) Description 12/01/2024 Results Follow-Up [facility] OB [address] [place] [address] Estela Sanders, CNM [address] [place], [place] [id number] Social History Tobacco Use Types Packs/Day Years [...] often do you attend chur ch or tenriism services? Never 10/04/2023 Do you belong to [...] and heating? Not hard at all 10/04/2023 [facility] [place] of Occupat ional Health - Occupational Stress [...] on filedocumented in this encounter Care Teams Administration Dean Relationship Specialty Start Date End Date Brooke Richards MD [address] [place] [address] PCP - General Family Medicine 11/05/22 documented as of this encounter
--- OUTSIDE RECORDS SUMMARY | 2024-12-28 11:27 | XMS_ITS | Encounter Summary ---
Author Organization [facility] Address [address] [place] [address] Care Team Providers Care Jewelry Internship Name Role Phone Brooke Richards MD Primary Care Provider [phone] Encounter Details Date Type Department Care Team [...] often do you attend chur ch or anabaptist services? Never 10/04/2023 Do you belong to any clubs o r organizations such as latter day groups, unions, fraternal or athletic groups, or [...] and heating? Not hard at all 10/04/2023 [facility] of Occupat ional Health - [...] place to sleep or slept in a chcf (including now)? No 10/04/2023 Estimated Date of [...] on filedocumented in this encounter Care Teams Jewelry Internship Relationship Specialty Start Date End Date Brooke Richards MD [address] [place] [address] PCP - General Family Medicine 11/05/22 documented as of this encounter
--- OUTSIDE RECORDS SUMMARY | 2024-12-28 11:27 | XMS_ITS | Encounter Summary ---
Author Organization [facility] Address [id number] [address] [place] [address] Care Team Providers Care Purse Maker Name Role Phone Unavailable Primary Care Provider Unavailabl e Encounter Details Date Type Department Care Team (Late st Contact Info) Description 09/28/2024 Orders Only [facility] [address] [place] [address] Beverly Mena, RN Social History [...]
--- OUTSIDE RECORDS SUMMARY | 2024-12-28 11:27 | XMS_ITS | Clinical Summary ---
Author Organization [facility] Address [id number] [address] [place] [address] Care Team Providers Care Food Stand Manager Name Role Phone Unavailable Primary Care Provider Unavailabl e Allergies No known active allergies Medications no115/iron/folic acid ( 19 ORAL) Take 1 tablet by mouth in the morning. Active Encounters Date Type Department Care Team Description 09/28/2024 Orders Only [facility] [address] [place] [address] Beverly Mena RN 09/27/2024 8:30 PM EDT - 09/28/2024 12:42 AM EDT Hospital Encounter [facility] [address] [place] [address] Giovanna Steve, DIRECTOR OF RADIO SERVICES-CNM Discharge Disposition: Home from Last 3 Months [...]
--- OUTSIDE RECORDS SUMMARY | 2024-12-28 11:27 | XMS_ITS | Encounter Summary ---
Author Organization [facility] Address [address] [place] [address] Care Team Providers Care Commercial Interior Designer Name Role Phone Brooke Richards MD Primary Care Provider [phone] Encounter Details Date Type Department Care Team (Late st Contact Info) Description 12/20/2024 Bamboo flowsheet [facility] [address] [place] [address] Estela Sanders, CNM [address] [place], [place] [phone] Social History Tobacco Use Types Packs/Day Years [...] often do you attend chur ch or amish services? Never 10/04/2023 Do you belong to [...] and heating? Not hard at all 10/04/2023 [facility] [place] of Occupat ional Health - Occupational Stress [...] place to sleep or slept in a group home (including now)? No 10/04/2023 Estimated Date [...] on filedocumented in this encounter Care Teams Commercial Interior Designer Relationship Specialty Start Date End Date Brooke Richards MD [address] [place] [address] PCP - General Family Medicine 11/05/22 documented as of this encounter
--- OUTSIDE RECORDS SUMMARY | 2024-12-28 11:27 | XMS_ITS | Encounter Summary ---
Author Organization [facility] Address [address] [place] [address] Care Team Providers Care Material Attendant Name Role Phone Brooke Richards MD Primary Care Provider [phone] Encounter Details Date Type Department Care Team (Late st Contact Info) Description 11/10/2024 Results Follow-Up [facility] [address] [place] [address] Estela Sanders, CNM [address] [place], [place] [phone] Social History Tobacco Use Types Packs/Day Years [...] often do you attend chur ch or jewish services? Never 10/04/2023 Do you belong to any clubs o r organizations such as yarsanism groups, unions, fraternal or athletic groups, or [...] and heating? Not hard at all 10/04/2023 [facility] [place] of Occupat ional Health - Occupational Stress [...] on filedocumented in this encounter Care Teams Material Attendant Relationship Specialty Start Date End Date Brooke Richards MD [address] [place] [address] PCP - General Family Medicine 11/05/22 documented as of this encounter
--- OUTSIDE RECORDS SUMMARY | 2024-12-28 11:27 | XMS_ITS | Encounter Summary ---
Author Organization [facility] Address [address] [place] [address] Care Team Providers Care Bellhop Service Captain Name Role Phone Brooke Richards MD Primary Care Provider [phone] Encounter Details Date Type Department Care Team (Late st Contact Info) Description 11/10/2024 Results Follow-Up [facility] OB [address] [place] [address] Estela Sanders, CNM [address] [place], [place] [phone] Social History Tobacco Use Types Packs/Day Years [...] any clubs o r organizations such as mandaen groups, unions, fraternal or athletic groups, or [...] heating? Not hard at all 10/04/2023 [facility] [place] of Occupat ional Health - Occupational Stress [...] place to sleep or slept in a [place] (including now)? No 10/04/2023 Estimated Date of [...] on filedocumented in this encounter Care Teams Bellhop Service Captain Relationship Specialty Start Date End Date Brooke Richards MD [address] [place] [address] PCP - General Family Medicine 11/05/22 documented as of this encounter
--- OUTSIDE RECORDS SUMMARY | 2024-12-28 11:27 | XMS_ITS | Encounter Summary ---
Author Organization [facility] Address [address] [place] [address] Care Team Providers Care Band Booker Name Role Phone Brooke Richards MD Primary Care Provider [phone] Encounter Details Date Type Department Care Team (Late st Contact Info) Description 11/03/2024 Results Follow-Up [facility] [address] [place] [address] Estela Sanders, CNM [address] [place], [place] [phone] Social History Tobacco Use Types Packs/Day Years [...] any clubs o r organizations such as taoism groups, unions, fraternal or athletic groups, or [...] and heating? Not hard at all 10/04/2023 [facility] [place] of Occupat ional Health - Occupational Stress [...] place to sleep or slept in a skilled nursing (including now)? No 10/04/2023 Estimated Date of [...] on filedocumented in this encounter Care Teams Band Booker Relationship Specialty Start Date End Date Brooke Richards MD [address] [place] [address] PCP - General Family Medicine 11/05/22 documented as of this encounter
--- OUTSIDE RECORDS SUMMARY | 2024-12-28 11:28 | XMS_ITS | Encounter Summary ---
Author Organization [facility] Address [address] [place] [address] Care Team Providers Care Extruder Operator Name Role Phone Brooke Richards MD Primary Care Provider [phone] Encounter Details Date Type Department Care Team (Late st Contact Info) Description 12/28/2024 Bamboo flowsheet [facility] [address] [place] [address] Estela Sanders, CNM [address] [place], [place] [phone] Social History Tobacco Use Types Packs/Day Years [...] often do you attend chur ch or bahai services? Never 10/04/2023 Do you belong to any clubs o r organizations such as jain groups, unions, fraternal or athletic groups, or [...] and heating? Not hard at all 10/04/2023 [facility] [place] of Occupat ional Health - Occupational Stress [...] place to sleep or slept in a jail (including now)? No 10/04/2023 Estimated Date of [...] on filedocumented in this encounter Care Teams Extruder Operator Relationship Specialty Start Date End Date Brooke Richards MD [address] [place] [address] PCP - General Family Medicine 11/05/22 documented as of this encounter
--- OUTSIDE RECORDS SUMMARY | 2024-12-28 11:28 | XMS_ITS | Encounter Summary ---
Author Organization [facility] Address [address] [place] [address] Care Team Providers Care Floor Steward/Stewardess Name Role Phone Brooke Richards MD Primary Care Provider Encounter Details [...] often do you attend chur ch or moravian services? Never 10/04/2023 Do you belong to any clubs o r organizations such as presybeterian groups, unions, fraternal or athletic groups, or [...] and heating? Not hard at all 10/04/2023 [facility] of Occupat ional Health - Occupational Stress [...] on filedocumented in this encounter Care Teams Floor Steward/Stewardess Relationship Specialty Start Date End Date Brooke Richards MD [address] [place] [address] PCP - General Family Medicine 11/05/22 documented as of this encounter
--- OUTSIDE RECORDS SUMMARY | 2024-12-28 11:28 | XMS_ITS | Encounter Summary ---
Author Organization [facility] Address [address] [place] [address] Care Team Providers Care Stove Cleaner Name Role Phone Brooke Richards MD Primary Care Provider [phone] Encounter Details Date Type Department Care Team [...] often do you attend chur ch or rastafari services? Never 10/04/2023 Do you belong to any clubs o r organizations such as alevism groups, unions, fraternal or athletic groups, or [...] and heating? Not hard at all 10/04/2023 [facility] of Occupat ional Health - Occupational [...] on filedocumented in this encounter Care Teams Stove Cleaner Relationship Specialty Start Date End Date Brooke Richards MD [address] [place] [address] PCP - General Family Medicine 11/05/22 documented as of this encounter
--- OUTSIDE RECORDS SUMMARY | 2024-12-28 11:28 | XMS_ITS | Clinical Summary ---
Author Organization [facility] Address [address] [place] [address] Care Team Providers Care School Janitor Name Role Phone Brooke Quigley MD Primary Care Provider Allergies No known active allergies Medications Fdmrbdtz-Cod-Rs -FA ( 1 + IRON PO) Take by mouth Activ e Blood Pressure Monitoring (Blood Pressure Cuff) miscIndications :Elevated blood pressure affecting in third trimester, antepartum ([facility]) 1 Units in the morning and 1 [...] AM EDT Routine [facility] [address] [place] [address] Sherly Sanders CNM Arrived 12/28/2024 Bamboo flowsheet [facility] [address] [place] [address] hSerly Sanders CNM 12/21/2024 Travel 12/20/2024 2:30 PM EDT Routine [facility] OB [address] [facility] [place] [address] Sherly Sanders, ADRIANA Encounter for care of first , third trimester ([facility]) (Primary Dx); screening for streptococcus B ([facility]) 12/20/2024 Bamboo flowsheet [facility] OB [facility] [place] [address] Sherly Sanders, ADRIANA 12/15/2024 Travel 12/14/2024 Travel 12/08/2024 11:00 AM EDT Routine [facility] OB [address] [facility] [place] [address] Sherly Sanders, ADRIANA Encounter for care of first , third trimester ([facility]) (Primary Dx) 12/08/2024 Bamboo flowsheet [facility] OB [address] [facility] [place] [address] Sherly Sanders, ADRIANA 12/02/2024 3:45 PM EDT Routine [facility] OB [address] [facility] [place] [address] Sherly Sanders, ADRIANA Encounter for care of first , third trimester ([facility]) (Primary Dx); Elevated blood pressure affecting in third trimester, antepartum ([facility]) 12/02/2024 Bamboo flowsheet [facility] OB [address] [facility] [place] [address] Sherly Sanders, ADRIANA 12/01/2024 Travel 12/01/2024 Orders Only [facility] OB [facility] [place] [address] Sherly Sanders, CNM Elevated blood pressure affecting in third trimester, antepartum ([facility]) 12/01/2024 Results Follow-Up [facility] OB [address] [facility] [place] [address] Sherly Sanders, CNM 11/30/2024 1:45 PM EDT Routine [facility] OB [address] [facility] [place] [address] Sherly Sanders, ADRIANA Encounter for care of first , third trimester ([facility]) (Primary Dx); Elevated blood pressure affecting in third trimester, antepartum ([facility]) 11/30/2024 Clinisync Result Encounter [facility] External Department Unsolicited Sherly Sanders, CNM 11/30/2024 Clinisync Result Encounter NOMS External Department Unsolicited Sherly Sanders, CNM 11/30/2024 Bamboo flowsheet [facility] OB [address] [facility] [place] [address] Sherly Sanders, CNM 11/30/2024 Travel 11/28/2024 Travel 11/18/2024 4:00 PM EDT Routine [facility] OB [address] [facility] [place] [address] Sherly Sanders, ADRIANA Encounter for care of first , third trimester ([facility]) (Primary Dx) 11/18/2024 Bamboo flowsheet [facility] [address] [facility] [place] [address] Sherly Sanders, CNM 11/13/2024 Travel 11/10/2024 Results Follow-Up [facility] OB [address] [facility] [place] [address] Sherly Sanders, CNM 11/10/2024 Results Follow-Up [facility] OB [address] [facility] [place] [address] Sherly Sanders, CNM 11/03/2024 4:00 PM EDT Ancillary Procedure [facility] ULTRASOUND [address] [place] [address] related condition in third trimester ([facility]) 11/03/2024 Results Follow-Up [facility] OB [address] [place] [address] Sherly Sanders CNM 11/03/2024 Travel 11/02/2024 Travel 10/20/2024 8:30 AM EDT Routine [facility] OB [address] [facility] [place] [address] Sherly Sanders CNM Screening for diabetes mellitus (DM); Screening for iron deficiency anemia; related condition in third trimester ([facility]) 10/20/2024 Bamboo flowsheet [facility] OB [address] [facility] [place] [address] Sherly Sanders CNM 10/15/2024 Travel 09/28/2024 10:30 AM EDT Ancillary Procedure [facility] ULTRASOUND [address] [address] related condition in second trimester ([facility]) 09/28/2024 Travel 09/28/2024 Orders Only [facility] OB [address] [place] [address] Sherly Sanders CNM related condition in second trimester ([facility]) from Last 3 Months Family History Relation [...] any clubs o r organizations such as methodist groups, unions, fraternal or athletic groups, or [...] 10/04/2023 [facility] [place] of Occupat ional Health - Occupational Stress [...] place to sleep or slept in a fci (including now)? No 10/04/2023 Estimated Date of [...] 9:18 AM EDT screening for streptococcus B ([facility]) US OB BPP W NON-STRESS 11/30/2024 7:18 PM EDT ALL LDH Routine 11/30/2024 4:22 PM EDT ALL URIC ACID Routine 11/30/2024 4:22 PM EDT [facility] CMP (CMP) (FOR REMOTE [facility] USE) Routine 11/30/2024 4:22 PM EDT ALL [...] CULTURE (12/21/2024 9:18 AM EDT) MICRO NUMBER [id number] [facility] SPECIMEN QUALITY Adequate [facility] SOURCE VAGINAL/ANOR [...] Performing Organization Information Site ID: QPT Name: [employer] [facility] Address: [address] [address], [address] [place] [phone] Director: Mark Rocha MD us Sherly Sanders CNM LAB BODY FLUIDS AND STOOLS O RDERABLES Final Result [facility] * US OB BPP W NON-STRESS (11/30/2024 7:18 PM EDT) Anatomical Region Laterality Modality Other 11/30/2024 7:18 PM EDT Narrative 11/30/2024 7:21 [place] [address] Ultrasound Report Signed Patient: BERNADETTE ASH MR#: [id number] : 2000 Acct:[id number] Age/Sex: 24 / F ADM Date: Loc: [facility] 252-[address]: SHERLY SANDERS APRN, CNM Ordering Physician: SHERLY SANDERS APRN, CNM Date of Service: 11/30/24 Procedure(s): US OB BPP w non-stress Accession Number(s): [id number] cc: SHERLY SANDERS APRN, CNM; BROOKE QUIGLEY [place] [address] Patient Name: BERNADETTE ASH MRN: [id number] date: 2000 Sex: F Assigned Patient Location: [facility] Current Patient Location: Accession/Order Number: [id number] Exam Date: 11/30/2024 19:18 Report Date: 11/30/2024 [...] Arshad M.D. 11/30/2024 7:18 PM Dictation Location: [place] [address] Electronically authenticated by: [id number] Y Date: 11/30/2024 19:18 Dictated By: Simba Arshad D.O. Signed By: 11/30/241920 DD/ 17 TD/TT: Inside Parts Sales: Procedure Note Radiology, Radiologist, MD - 11/30/2024 [place] [address] Ultrasound Report Signed Patient: BERNADETTE ASH JMR#: [id number] : 2000Acct:[id number] Age/Sex: 24 / FADM Date: Loc: [address]: SHERLY SANDERS APRN, CNM Ordering Physician: SHERLY SANDERS APRN, CNM Date of Service: 11/30/24 Procedure(s): US OB BPP w non-stress Accession Number(s): [id number] cc: SHERLY SANDERS APRN, CNM; BROOKE QUIGLEY [place] [id number] Patient Name: BERNADETTE ASH MRN: [facility]:[id number] date: 2000 Sex: F Assigned Patient Location: [facility] Current Patient Location: Accession/Order Number: [id number] Exam Date: 11/30/2024 19:18 Report Date: 11/30/2024 [...] Arshad M.D. 11/30/2024 7:18 PM Dictation Location: [place] [address] Electronically authenticated by: [id number] Y Date: 9:18 Dictated By: Simba Arshad D.O. Signed By:11/30/241920 DD/ 17 TD/TT: Inside Parts Sales: us Sherly Sanders CNM [facility] IMAGING Final Resu lt * (ABNORMAL) [facility] CMP (CMP) (FOR REMOTE [facility] USE) (11/30/2024 4:22 PM EDT) SODIUM 143 136 - 145 mmol/L [facility] POTASSIUM 3.5 3.5 - 5.1 mmol/L [facility] CHLORIDE 106 98 - 107 mmol/L [facility] CARBON DIOXIDE 28.1 21.0 - 32.0 mmol/L [facility] ANION GAP 12.4 [facility] GLUCOSE 92 74 - 106 mg/dL [facility] BLOOD UREA NITROGEN 6.0(L) 7.0 - 18.0 mg/dL [facility] CREATININE 0.56 0.55 - 1.02 mg/dL TBH TB[facility] EGFR-AF [place] >60 >=60 mL/min/1. 73m 2 TBH TBH EGFR-NON AF [place] >60 >=60 mL/min/1. 73m 2 [facility] BUN [...] Sherly Sanders CNM CLIN[facility] Final Result [facility] * ALL URIC ACID (11/30/2024 4:22 PM EDT) URIC ACID 4.9 2.6 - 6.0 mg/dL [facility] 11/30/2024 4:22 PM EDT 11/30/2024 4:26 PM EDT Narrative CLINISYNC - 11/30/2024 4:43 PM EDT Sherly L Alexsandrao CN CLINISYNC Final Result [facility] * ALL LDH (11/30/2024 4:22 PM EDT) Pathologist [facility] LACTATE DEHYDROGENASE 162 81 - 234 U/L TB 11/30/2024 4:22 PM EDT 11/30/2024 4:26 PM EDT Narrative CLINISYNC - 11/30/2024 4:43 PM EDT Sherly Lily pUtono CN CLINISYNC Final Result Performing Organization Address [facility] Co de Phone Number CLINISYNC [facility] * (ABNORMAL) ALL CBC WITH AUTO DIFF (11/30/2024 4:22 PM EDT) Pathologist [facility] TB WBC 9.3 4.0 - 11.0 10 [...] CN CLINISYNC Final Result Performing Organization Address [facility] Co de Phone Number JULIA [facility] * [...] report is generated using voice recognition reporting (Meilimei). On occasion [employer] erroneously drops words from the report or [...] report is generated using voice recognition reporting (Meilimei).On occasion [employer] erroneously drops words from the report orreplaces [...] Performing Organization Information Site ID: QTW Name: [facility] Address: [address] [place] [phone] Director: Angela Murphy us Sherly Sanders CNM [...] Performing Organization Information Site ID: QTW Name: [facility] Address: [address] [place] [phone] Director: Angela Murphy Sherly Sanders [facility] BLOOD ORDERABLES Final R esult [facility] [...] II, MD, PHD at 28-Sep-2024 11:12:33 PM [facility] Procedure Note Reid Mckeon MD - [...] MCKEON II, MD, PHDat 28-Sep-2024 11:12:33 PM [facility] us Sherly Sanders CNM IMG OB US PROCEDURES Final R esult from Last 3 Months Insurance [employer] Care Teams School Janitor Relationship Specialty Start Date End Date Brooke Quigley MD [address] [place] [address] PCP - General Family Medicine 11/05/22
[2024-12-28 12:01] LABS: Hematocrit 41.6 % (36.0-48.0); Hemoglobin 14.3 g/dL (12.0-16.0); Immature Granulocytes Abs Auto 0.06 10^3/uL (0.00-0.03); Immature Granulocytes Pct Auto 0.4 % (0.0-0.5); Lymphocytes Absolute Auto 1.5 10^3/uL (1.2-3.8); Mean Corpuscular HGB Conc 34.4 g/dL (29.9-35.2); Mean Corpuscular Hemoglobin 31.4 pg (26.7-34.0); Mean Corpuscular Volume 91.4 fL (81.0-99.0); Platelet Count 220 10^3/uL (150-450); Red Blood Count 4.55 10^6/uL (4.20-5.40); White Blood Count 13.6 10^3/uL (4.0-11.0)
[2024-12-28 12:15] LABS: Cannabinoid Screen Urine NEGATIVE (NEGATIVE); Methamphetamines Screen Urine NEGATIVE (NEGATIVE); Tricyclic Antidepressant Urine NEGATIVE (NEGATIVE)
--- NOTE | 2024-12-28 12:48 | P.OBHP_ITS ---
OB - H&P: HPI History of Present Illness Chief complaint: ACTIVE LABOR PER CHRISTIANO SOARES : 1 Para: 0 Gestational age based on last menstrual period: 38.2 History of Present Dating criteria: LMP confirmed by 1st trimester US care: good care Ultrasounds: normal 1st trimester US and normal mid trimester US complications comment: one episode of elevated blood pressure Medical complications OB: none Labs Blood type: O (+) positive Rubella: immune RPR/VDLR: nonreactive GBS status: positive HBsAG: negative Review of Systems ROS Status of ROS: 10 or more systems reviewed and unremarkable except as noted in history and below PFSH PFSH Social History Little interest or pleasure in doing things: not at all Feeling down, depressed, or hopeless: not at all Meds Home Medications and Allergies Allergies Allergy/AdvReac Type Severity Reaction Status Date / Time No Known Drug Allergies Allergy Verified 11/30/24 16:21 Exam Constitutional Vital Signs, click to edit/add: Last Vital Signs Pulse 100 H 12/28/24 11:30 BP 124/76 12/28/24 11:30 O2 Del Method Room Air 12/28/24 11:24 Documenting provider has reviewed patient's vital signs: yes Common normals: no apparent distress Exam limitations: altered mental status General appearance: cooperative, comfortable, well kempt and well developed Orientation/consciousness: Yes awake, Yes oriented to person, Yes oriented to place and Yes oriented to time HENMT Common normals: normocephalic Eye Common normals: EOMs intact bilaterally General eye: normal appearance of both eyes Neck & C-Spine Common normals: full ROM General: normal visual inspection Lymph Lymphatic: no lymphadenopathy noted Chest Common normals: inspection of chest normal Respiratory Common normals: normal respiratory effort Effort & inspection: able to speak in complete sentences Auscultation: clear to auscultation bilaterally Cardio Common normals: regular rate and regular rhythm Rate: regular rate Rhythm: regular rhythm GI Common normals: Normal to inspection, nondistended, normoactive bowel sounds present Inspection: normal to inspection Auscultation: normoactive bowel sounds Palpation: soft Common normals: no CVA tenderness OB/external & speculum: deferred Back & Pelvis Common normals: no CVA tenderness Extremity Common normals: normal to inspection Neuro Common normals: oriented x3 Sensorium/orientation: awake, alert, oriented to person, oriented to place and oriented to time Psych Psychiatry clinicians, please identify where your Mental Status Exam is docum ented: Mental Status Exam documented in the separate MSE Common normals: mental status grossly normal, thought process normal, cooperative, affect normal, speech normal, activity/motor behavior normal, denies hallucinations, denies homicidal ideation and denies suicidal ideation Appearance: grossly normal Attitude: calm Results Labs Labs: Short CBC 12/28/24 Range/Units 11:53 WBC 13.6 H (4.0-11.0) 10^3/uL Hgb 14.3 (12.0-16.0) g/dL Hct 41.6 (36.0-48.0) % Plt Count 220 (150-450) 10^3/uL OB - A/P Assessment and Plan (1) Term :
[2024-12-28] MEDS: LIDOCAINE HCL 1% 200 MG/20 ML MDV INJ (15:10)
[2024-12-28] MEDS: OXYTOCIN/0.9 % SODIUM CHLORIDE 20 UNITS/1,000 ML PLAST..BAG 125 UNIT IV (15:25)
[2024-12-28] MEDS: KETOROLAC TROMETHAMINE 30 MG/ML VIAL IVP (15:45)
--- NOTE | 2024-12-28 16:07 | PM.OBPRCVD ---
Procedure Intrapartal events: None Induction method: none Delivery monitor: external FHT and external uterine Route of delivery: Episiotomy Description: right mediolateral L&D Laceration Description: perineal - 2nd degree Delivery repair: Vicryl Estimated blood loss (mL): 250 Anesthesia type: Local Disposition: no change Delivery date: 12/28/24 Gender: female presentation: vertex Placental delivery description: Spontaneous cord description: 3 Vessels heart rate - 1 minute: 100 bpm or Greater respiratory effort - 1 minute: Spontaneous/Strong Cry muscle tone - 1 minute: Active Movement reflex response - 1 minute: Prompt Response color - 1 minute: Bluish Hands or Feet total score - 1 minute: 9 heart rate - 5 minute: 100 bpm or Greater respiratory effort - 5 minute: Spontaneous/Strong Cry muscle tone - 5 minute: Active Movement reflex response - 5 minute: Prompt Response color - 5 minute: Bluish Hands or Feet total score - 5 minute: 9
[2024-12-28] MEDS: GLYCERIN/WITCH HAZEL PADS 1 PAD TOPICAL (17:29)
[2024-12-28] MEDS: BENZOCAINE/MENTHOL 85 GRAM SPRAY BOTTLE 1 APPLIC TOPICAL (17:30)
[2024-12-29] VITALS (7 sets, daily range): BP systolic 127–137; BP diastolic 68–84; PULSE 93–108; TEMP 36.6–36.7
[2024-12-29] MEDS: IBUPROFEN 400 MG TABLET 800 MG PO ×3 (00:05→23:07)
[2024-12-29 06:22] LABS: Hematocrit 32.8 % (36.0-48.0); Hemoglobin 11.2 g/dL (12.0-16.0); Immature Granulocytes Abs Auto 0.06 10^3/uL (0.00-0.03); Immature Granulocytes Pct Auto 0.4 % (0.0-0.5); Lymphocytes Absolute Auto 1.8 10^3/uL (1.2-3.8); Mean Corpuscular HGB Conc 34.1 g/dL (29.9-35.2); Mean Corpuscular Hemoglobin 31.0 pg (26.7-34.0); Mean Corpuscular Volume 90.9 fL (81.0-99.0); Platelet Count 204 10^3/uL (150-450); Red Blood Count 3.61 10^6/uL (4.20-5.40); White Blood Count 15.5 10^3/uL (4.0-11.0)
--- NOTE | 2024-12-29 07:39 | PM.OBPN ---
OB - PN: Subj Subjective Patient comments: no complaints and pain well controlled [place] status: doing well Exam Constitutional Vital Signs, click to edit/add: Last Vital Signs Pulse 108 H 12/29/24 00:07 BP 137/82 12/29/24 00:07 O2 Del Method Room Air 12/29/24 00:00 Documenting provider has reviewed patient's vital signs: yes Common normals: no apparent distress Respiratory Common normals: normal respiratory effort and clear to auscultation bilaterally Cardio Common normals: regular rate and regular rhythm GI Common normals: Normal to inspection, nondistended, normoactive bowel sounds present Extremity Common normals: no clubbing, cyanosis or edema and no calf tenderness Results Labs Labs: Short CBC 12/28/24 12/29/24 Range/Units 11:53 06:07 WBC 13.6 H 15.5 H (4.0-11.0) 10^3/uL Hgb 14.3 11.2 L (12.0-16.0) g/dL Hct 41.6 32.8 L (36.0-48.0) % Plt Count 220 204 (150-450) 10^3/uL OB - PN: A/P Assessment and Plan (1) Term : Plan - Vaginal Delivery day: 1 Plan: routine care Time Spent with Patient Time: Total time spent is greater than 50% in coordination of care (as documented) at patient's floor/unit and/or counseling patient: Total time spent with greater than 50% in coordination of care (as documented) at patient's floor/unit and/or counseling patient: less than 15 minutes
[2024-12-29] MEDS: DOCUSATE SODIUM 100 MG CAPSULE PO ×2 (08:14→23:08)
[2024-12-29] MEDS: ACETAMINOPHEN 325 MG TABLET 650 MG PO (08:14)
--- NOTE | 2024-12-29 19:58 | W.PC.ACHO ---
Registration Status: ADM IN Primary Language: Vincentian Preferred Language: Vincentian Report given to Carly Antonio RN at 1900. Care relinquished. Active Medications Generic Name Dose Route Start Last Admin Trade Name Bob PRN Reason Stop Dose Admin Acetaminophen 650 mg 12/28/24 16:39 12/29/24 08:14 Acetaminophen 325 Mg Tablet PO 650 mg Q6H PRN Administration Mild Pain Al Hydroxide/Mg Hydroxide 2,400 mg 12/28/24 16:39 Magnesium Hydroxide 2,400 Mg/10 Ml Oral.Susp PO Q6H PRN Dyspepsia Benzocaine/Menthol 1 applic 12/28/24 16:39 12/28/24 17:30 Benzocaine/Menthol 85 Gram Slater Bottle TOPICAL 1 applic Q2H PRN Administration Pain Diphtheria/Pertussis/Tetanus Vacc 0.5 ml 12/30/24 09:00 Adacel Diph,Pertuss(Acell),Tet Vac/Pf 0.5 Ml Adult Syringe IM 12/30/24 09:01 .ONCE ONE Docusate Sodium 100 mg 12/29/24 09:00 12/29/24 08:14 Docusate Sodium 100 Mg Capsule PO 100 mg BID ADA Administration Lactated Ringer's 1,000 mls @ 125 mls/hr 12/28/24 11:30 12/28/24 16:25 Lactated Ringers IV Infused .Q8H ADA Infusion Ibuprofen 800 mg 12/28/24 17:00 12/29/24 12:30 Ibuprofen 400 Mg Tablet PO 800 mg Q8H ADA Administration Lidocaine 5 ml 12/28/24 11:18 Lidocaine Viscous 2% 15 Ml Solution TOPICAL 12/30/24 11:20 ONCE PRN Pain Ondansetron HCl 4 mg 12/28/24 11:18 Ondansetron Pf 4 Mg/2 Ml Vial IV Q6H PRN Nausea And Vomiting Ondansetron HCl 4 mg 12/28/24 11:18 Ondansetron 4 Mg Rapdis Tablet SL Q6H PRN Nausea And Vomiting Senna 17.2 mg 12/28/24 20:00 Sennosides 8.6 Mg Tablet PO QHS PRN Constipation Simethicone 80 mg 12/28/24 16:39 Simethicone 80 Mg Tab.Chew PO QID PRN Abdominal Distention Temazepam 15 mg 12/28/24 20:00 Temazepam 15 Mg Capsule PO QHS PRN Sleep Witch Norma/Glycerin 1 pad 12/28/24 16:39 12/28/24 17:29 Glycerin/Witch Norma Pads TOPICAL 1 pad Q2H PRN Administration Pain Respiratory Oxygen Delivery Method Room Air Oxygen Delivery Method Room Air Oxygen Delivery Method Room Air Cardiology Heart Sounds Regular,Strong Heart Sounds Regular,Strong Bowels Bowel Pattern No Bowel Movement Renal Bladder Pattern Continent Bladder Pattern Continent Bladder Pattern Continent
[2024-12-30] MEDS: DOCUSATE SODIUM 100 MG CAPSULE PO (08:13)
[2024-12-30] MEDS: IBUPROFEN 400 MG TABLET 800 MG PO (08:13)
[2024-12-30 08:16] VITALS: BP 139/82; PULSE 102; TEMP 36.6
--- NOTE | 2024-12-30 14:17 | PM.OBPN ---
OB - PN: Subj Subjective Patient comments: no complaints [place] status: doing well and well feeding status: exclusively Exam Constitutional Vital Signs, click to edit/add: Last Vital Signs Temp 97.9 F 12/30/24 08:16 Pulse 102 H 12/30/24 08:16 Resp 16 12/30/24 08:16 BP 139/82 12/30/24 08:16 O2 Del Method Room Air 12/30/24 08:16 Documenting provider has reviewed patient's vital signs: yes Common normals: no apparent distress General appearance: comfortable Chest Common normals: inspection of breasts normal and palpation of breasts normal Bimanual exam- vagina & uterus: uterus non-tender (firm and below umbilicus) OB - PN: A/P Assessment and Plan (1) Term : Assessment and Plan: patient doing well on PPD#2 Plan d/c home today Time Spent with Patient Time: Total time spent is greater than 50% in coordination of care (as documented) at patient's floor/unit and/or counseling patient: Total time spent with greater than 50% in coordination of care (as documented) at patient's floor/unit and/or counseling patient: less than 15 minutes
--- NOTE | 2024-12-30 14:20 | PM.OBDS ---
DS: Providers Provider Date of admission: 12/28/24 11:20 Primary care physician: ARMIN QUIGLEY Attending physician on discharge: COY CHAN Discharging clinician: COY CHAN Anticipated date of discharge: 12/30/24 DS: Diagnosis Discharge Diagnosis (1) Term : Assessment and plan: Plan d/c home today OB - DS: Summary Hospital Course Hospital Course: normal pp course, Peripartum Data - Vaginal Delivery Laceration description: perineal - 2nd degree Episiotomy Description: right mediolateral Complications complications: none Infant Delivery method: spontaneous vaginal delivery Gender: female Status at Discharge Functional status at discharge: independent ambulation Overall status at discharge: patient is back to baseline Time Spent with Patient Time attestation: Total time spent providing and/or coordinating discharge services: Time spent: less than 30 minutes Exam Constitutional Vital Signs, click to edit/add: Last Vital Signs Temp 97.9 F 12/30/24 08:16 Pulse 102 H 12/30/24 08:16 Resp 16 12/30/24 08:16 BP 139/82 12/30/24 08:16 O2 Del Method Room Air 12/30/24 08:16 Documenting provider has reviewed patient's vital signs: yes Common normals: no apparent distress General appearance: comfortable Bimanual exam- vagina & uterus: uterus non-tender Discharge Plan Discharge Disposition: Home, Self-Care Condition: Good Assessment: stable on PPD 2 Plan of Treatment: discharge home Discharge Medications: No Action No Known Home Medications Activity: resume usual activities as tolerated Diet: advance to your usual diet Print Language: [place] Citizen Forms: Vaginal Delivery - Discharge, Portal Instructions Discharge location: d/c 12/30/24 @ [facility]
== END 2024-12-30 13:10 | disposition home or self-care (01) | DRG 807 ==
PROVIDERS: Admitting Provider Midwife; PCP Family Medicine; Visit Provider Midwife
DX: O99.824 Streptococcus B carrier state complicating childbirth (principal); Z37.0 Single live birth; O70.1 Second degree perineal laceration during delivery; Z3A.38 38 weeks gestation of pregnancy
CPT/HCPCS: 36415; 59050; 59410; 80307; 85025; 86850; 86900; 86901; J1885; J2540